=== PATIENT | male | born 1995 | race Two or more races ===

== ENCOUNTER 2019-06-07 13:52 | Outpatient (CLI) | payer OTHER ==
--- NOTE | 2019-06-07 15:04 | Diagnostic Imaging Report ---
Indications: Altered mental status Technique: Spiral acquisitions obtained through the brain. Angled axial and coronal 5 x 5 mm slices were reconstructed. Total dose length product 1537 mGycm. CTDI vol(s) 70 mGy. Dose reduction achieved using automated exposure control Comparison: None. Findings: No acute intracranial hemorrhage or edema. No mass effect nor midline shift. Normal martinez-white differentiation. Normal size ventricles and extra axial CSF spaces. Visualized orbits and sinuses are unremarkable. The mastoids are clear. Intact calvarium Impression: Negative The CT scanner at [facility] is accredited by the [employer] and the scans are performed using protocols designed to limit radiation exposure to as low as reasonably achievable to attain images of sufficient resolution adequate for diagnostic evaluation.
== END 2019-06-07 15:52 | disposition home or self-care (01) ==
LOC: CAT 13:52
DX: R41.82 Altered mental status, unspecified (principal); R52 Pain, unspecified
CPT/HCPCS: 70450